=== PATIENT | male | born 1980 | race Caucasian/White ===

== ENCOUNTER 2023-03-11 20:44 | Emergency (ER) | payer OTHER, SELFPAY ==
[2023-03-11] VITALS (9 sets, daily range): BP systolic 154–186; BP diastolic 110–138; PULSE 61–91; RESP 7–22; TEMP 36.5; O2SAT 99–100; BMI 35.5
--- NOTE | 2023-03-11 21:01 | ECG_ITS ---
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: : 1980 Requested By: AMINATA INIGUEZ Order Number: [id number] Reading MD: AMINATA INIGUEZ Measurements Intervals [place] Rate: 57 P: 67 OR: 148 QRS: 108 QRSD: 84 T: 25 QT: 450 QTc: 444 Interpretive Statements 1100 Sinus rhythm 1470 with occasional supraventricular premature complexes 3331 Anterolateral myocardial infarction, acute 8102 Low QRS voltage in chest leads 9150 abnormal ECG Compared to ECG 10/19/2019 14:47:33 Myocardial infarct finding now present Low QRS voltage now present Sinus tachycardia no longer present T-wave abnormality no longer present Electronically Signed On 03-16-2023 6:43:48 EST by AMINATA INIGUEZ
--- NOTE | 2023-03-11 21:01 | XR_ITS ---
The [address] [address] Patient Name: TIFFANI BINGHAM MRN: [id number] date: 1980 Sex: M Assigned Patient Location: ER Current Patient Location: ER Accession/Order Number: [id number] Exam Date: 03/11/2023 19:20 Report Date: 03/11/2023 21:46 At the request of: JUAN CARLOS LOGAN Procedure: XR chest 1V EXAM: XR chest 1V TECHNIQUE: Single AP view chest HISTORY: Chest pain COMPARISON: None. FINDINGS: The heart and mediastinum are unremarkable. The lung reina are clear of any acute infiltrate, effusion or mass. No acute bony abnormality. XR/XR chest 1V IMPRESSION: No acute pulmonary disease. Electronically authenticated by: JAYDEN GARCIA Date: 03/11/2023 21:46
--- NOTE | 2023-03-11 21:06 | ED_ITS ---
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 He presents for evaluation of left-sided chest pain that started approximately 3 hours prior to arrival with shortness of breath and dizziness while carrying groceries in from the outside. He denies any syncope. He is noncompliant with h is medications. Has a history of hypertension and diabetes and a family history of heart disease. He was brought to the emergency department by his . An EKG done upon arrival showed ST segment elevation with reciprocal changes and Dr. Antunez, interventional radiology was immediately consulted. 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 He was medi cated with IV fluids, nitroglycerin,Heparin, Brillinta, aspirin,Zofran and morphine. On reevaluation he was feeling somewhat better and remained stable in emergency department awaiting transfer. He was transferred by air ambulance to the catheter lab. HPI - Chest Pain General Chief Complaint: Chest Pain Stated Complaint: CHEST PAIN Time Seen by Provider: 03/11/23 20:46 Source: patient and family Mode of arrival: walk-in History of Present Illness HPI narrative: Patient is a 42-year-old male who presents to the emergency department for a 3- hour history of pain in the left anterior chest. He reports feeling short of breath. He has a history of hypertension, high cholesterol, diabetes. He states he stopped taking his medications 1 month ago because he ran out of them. He took one of his 's hydrochlorothiazide tablets prior to arrival. He denies any history of heart attack, he is not supposed to be on any blood thinners. He has had no fevers, cough, congestion. He is a 1 pack/day cigarette smoker. He has no swelling to the lower extremities. Risk Factors Coronary artery disease risk factors: diabetes, smoking history, hyperlipidemia and hypertension Related Data Allergies Allergy/AdvReac Type Severity Reaction Status Date / Time Penicillins Allergy Unknown Verified 03/11/23 20:51 Review of Systems ROS Constitutional Denies: fever or chills Ears, nose, mouth, and throat Denies: throat pain or nasal congestion Cardiovascular Reports: chest pain Respiratory Reports: shortness of breath and cough Gastrointestinal Denies: nausea or vomiting Musculoskeletal Denies: back pain Integumentary/Breast Denies: rash Neurological Denies: headache Hematologic/Lymphatic Denies: easy bruising PFSH PFS Social History Smoking status: Current every day smoker Exam Narrative Exam Narrative: Gen.: Awake, alert, Patient is ashen, lying flat on exam cart Head: Normocephalic, atraumatic ENT: Moist mucous membranes Respiratory: No respiratory distress, lungs clear bilaterally Cardio: Regular rate and rhythm Extremities: Moves extremities equally, no Pedal edema Psych: Normal mood and affect Neuro: No focal neuro deficit Skin: Warm, dry, intact Constitutional Vital Signs, click to edit/add: Last Vital Signs Temp 97.7 F 03/11/23 20:49 Pulse 61 03/11/23 20:49 Resp 20 03/11/23 20:49 BP 180/110 H 03/11/23 20:49 Pulse Ox 100 03/11/23 20:49 O2 Del Method Room Air 03/11/23 20:49 Course Vital Signs Vital signs: Vital Signs Temperature 97.7 F 03/11/23 20:49 Pulse Rate 61 03/11/23 20:49 Respiratory Rate 20 03/11/23 20:49 Blood Pressure 180/110 H 03/11/23 20:49 Pulse Oximetry 100 03/11/23 20:49 Oxygen Delivery Method Room Air 03/11/23 20:49 Temperature 97.7 F 03/11/23 20:49 Pulse Rate 61 03/11/23 20:49 Respiratory Rate 20 03/11/23 20:49 Blood Pressure 180/110 H 03/11/23 20:49 Pulse Oximetry 100 03/11/23 20:49 Oxygen Delivery Method Room Air 03/11/23 20:49 MDM - Chest Pain MDM Narrative Medical decision making narrative: On arrival to the emergency department, patient was noted to be ashen, appearing unwell with manual blood pressure 180/110. EKG was immediately obtained by nursing staff on placing the patient in an exam room, this shows anterolateral STEMI which was reviewed by Dr. Amaya and myself. I immediately evaluated the patient who is appearing unwell but is otherwise hemodynamically stable with elevated blood pressure. He is treated with aspirin, morphine, Zofran. I discussed the case with Dr. Antunez for cardiology at [facility].I sent him a copy of the EKG. He reviewed this and requested the patient be treated for STEMI. He requested Brilinta and heparin.Transport was immediately contacted and flight is available, patient will be transported to [facility] by [facility]. Lab studies, EKG and CXR obtained prior to transfer Critical care time 35 minutes. Medical Records Data Attestation: I reviewed the patient's medical records. Lab Data Attestation: I reviewed the patient's lab results. ECG Data Attestation: I personally reviewed and interpreted this ECG as follows: (Normal sinus rhythm at a rate of 57, ST elevation in leads V3, V4, V5 with ST depression in lead III. EKG reviewed by attending physician.) Critical Care Time Critical Care Time Critical Care Time: Yes Total Critical Care Time: 35 Attestation: Patient with STEMI, treated with critical care medications and life flighted to [facility] Discharge Plan Discharge Chief Complaint: Chest Pain Clinical Impression: ST elevation myocardial infarction (STEMI), Chest pain Patient Disposition: [facility] Time of Disposition Decision: 21:18 Discharge Location: [facility] Condition: Good Mode of Transportation: [facility] Referrals: Physician,Non-Staff, MD [Primary Care Provider] - 1 week
[2023-03-11 21:11] LABS: Basophils Absolute Auto 0.1 10^3/uL (0.0-0.1); Basophils Percent Auto 0.9 % (0.2-2.0); Eosinophils Absolute Auto 0.2 10^3/uL (0.0-0.7); Eosinophils Percent Auto 1.2 % (0.9-7.0); Hemoglobin 16.4 g/dL (14.0-18.0); Immature Granulocytes Abs Auto 0.05 10^3/uL (0.00-0.03); Immature Granulocytes Pct Auto 0.3 % (0.0-0.5); Lymphocytes Absolute Auto 2.5 10^3/uL (1.2-3.8); Lymphocytes Percent Auto 15.3 % (20.5-60.0); Mean Corpuscular HGB Conc 32.8 g/dL (29.9-35.2); Mean Corpuscular Volume 85.3 fL (80.0-94.0); Monocytes Absolute Auto 0.9 10^3/uL (0.3-0.8); Monocytes Percent Auto 5.5 % (1.7-12.0); Neutrophils Absolute Auto 12.4 10^3/uL (1.4-6.5); Neutrophils Percent Auto 76.8 % (43.0-75.0); Platelet Count 409 10^3/uL (150-450); Red Blood Count 5.86 10^6/uL (4.70-6.10); Red Cell Distribution Width 13.2 % (11.0-15.0); White Blood Count 16.1 10^3/uL (4.0-11.0)
[2023-03-11] MEDS: MORPHINE SULFATE 4 MG/ML VIAL IV (21:12)
[2023-03-11] MEDS: ASPIRIN 81 MG TAB.CHEW 162 MG PO (21:12)
[2023-03-11] MEDS: 0.9 % SODIUM CHLORIDE 1,000 ML 999 ML IV (21:12)
[2023-03-11] MEDS: ONDANSETRON PF 4 MG/2 ML VIAL IV (21:12)
[2023-03-11] MEDS: TICAGRELOR 90 MG TABLET 180 MG PO (21:15)
[2023-03-11] MEDS: NITROGLYCERIN 0.4 MG BOTTLE SL (21:20)
[2023-03-11 21:22] LABS: Partial Thromboplastin Time 27.1 sec (22.3-36.2); Prothrombin Time 10.6 sec (9.0-11.6)
[2023-03-11 21:36] LABS: Alanine Aminotransferase 22 U/L (16-63); Albumin Globulin Ratio 0.9; Alkaline Phosphatase 85 U/L (46-116); Anion Gap 12.1; Aspartate Amino Transferase 25 U/L (15-37); BUN Creatinine Ratio 11.8; Bilirubin Total 0.3 mg/dL (0.2-1.0); Calcium 9.8 mg/dL (8.5-10.1); Carbon Dioxide 28.3 mmol/L (21.0-32.0); Chloride 100 mmol/L (98-107); Estimated GFR (African America >60 (>=60); Estimated GFR (Non-African Ame >60 (>=60); Globulin 4.5 g/dL; Glucose 216 mg/dL (74-106); Potassium 3.4 mmol/L (3.5-5.1); Sodium 137 mmol/L (136-145); Total Protein 8.5 g/dL (6.4-8.2)
[2023-03-11] MEDS: HEPARIN SODIUM,PORCINE/D5W 25,000 UNIT/500 ML IV.SOLN 23.95 UNIT IV (21:53)
== END 2023-03-11 21:35 | disposition short-term general hospital (02) ==
PROVIDERS: Physician Assistant; Emergency Provider Emergency Medicine
DX: R07.9 Chest pain, unspecified (principal); I21.3 ST elevation (STEMI) myocardial infarction of unspecified site; F17.210 Nicotine dependence, cigarettes, uncomplicated
CPT/HCPCS: 36415; 71045; 80053; 83880; 84484; 85025; 85610; 85730; 93005; 96374; 96375; 99285; J1644; J2270; J2405